=== PATIENT | female | born 2000 | race Two or more races ===

== ENCOUNTER 2022-06-09 00:28 | Emergency (ER) | payer BC, OTHER ==
[~2022-06-09] VITALS: Ht 167.6 cm; Wt 65.9 kg
[2022-06-09 01:31] LABS: Urine Bacteria FEW /hpf (None Seen); Urine Blood 1+ /uL (Negative); Urine Specific Gravity 1.002 (1.001-1.035); Urine WBC 89 /hpf (0 - 5)
[2022-06-09 01:56] LABS: Basophils # (auto) 0 10 ^3/uL (0-0.2); Basophils % (auto) 0.3 % (0.0-2.0); Eosinophils # (auto) 0.1 10 ^3/uL (0-0.8); Eosinophils % (auto) 1.5 % (0.0-7.0); Hematocrit 37.1 % (36.0-46.0); Hemoglobin 12.5 g/dL (12.2-16.2); Lymphocytes # (auto) 1.8 10 ^3/uL (0.4-5.4); Lymphocytes % (auto) 20.7 % (10.0-50.0); Mean Corpuscular Hgb Conc. 33.8 g/dL (32.0-36.0); Mean Corpuscular Volume 85.8 fL (80.0-100.0); Monocytes % (auto) 11.2 % (0.0-12.0); Neutrophils # (auto) 5.9 10 ^3/uL (1.6-8.6); Neutrophils % (auto) 66.3 % (37.0-80.0); Red Blood Cells 4.33 10^6/uL (4.0-5.20); Red Cell Distribution Width 13.9 % (11.8-14.3); White Blood Cell 8.8 10^3/uL (4.4-10.8)
[2022-06-09 02:15] LABS: Albumin 3.7 g/dL (3.4-5.0); BUN/Creatinine Ratio 15.7; Calcium 9.5 mg/dL (8.5-10.1); Potassium 3.9 mmol/L (3.5-5.1)
[2022-06-09 02:18] LABS: Bilirubin, Total 0.5 mg/dL (0.2-1.0); Total Protein 7.8 g/dL (6.4-8.2)
[2022-06-09] MEDS ORDERED: cefTRIAXone 1GM/50ML D5W 50 ML IV ONE (05:00)
[2022-06-09] MEDS ORDERED: TAMSULOSIN HYDROCHLORIDE 0.4 MG CAP PO ONE (05:45)
[2022-06-09] MEDS ORDERED: ONDANSETRON ODT 4 MG TAB PO ONE (05:45)
[2022-06-09] MEDS ORDERED: TAM04C PO (06:08)
[2022-06-09] MEDS ORDERED: HYDR-4902 PO (06:08)
[2022-06-09] MEDS ORDERED: CIPR500T4 PO (06:08)
[2022-06-09] MEDS ORDERED: ONDA-144 PO (06:08)
[2022-06-09] MEDS ORDERED: CIPROFLOXACIN HCL 500 MG TAB PO ONE (06:30)
[2022-06-09 06:35] VITALS: BP 116/69
== END 2022-06-09 06:41 | disposition home or self-care (01) ==
LOC: ER 00:28
DX: N39.0 Urinary tract infection, site not specified (principal); N12 Tubulo-interstitial nephritis, not specified as acute or chronic; R10.2 Pelvic and perineal pain
CPT/HCPCS: 36415; 74176; 80053; 81001; 84702; 85025; 99284; Q0162

== ENCOUNTER 2025-06-18 23:02 | Emergency (ER) | payer BC, MEDICAID, OTHER ==
[~2025-06-18] VITALS: Ht 167.6 cm; Wt 72.2 kg
[~2025-06-18 23:02] MED LIST: CIPR500T4 PO; HYDR-4902 PO; ONDA-144 PO; TAMS-35 PO
[2025-06-18 23:52] LABS: Hematocrit 39.1 % (36.0-46.0); Hemoglobin 13.1 g/dL (12.2-16.2); Mean Corpuscular Hemoglobin 28.9 pg (28.0-32.0); Mean Corpuscular Volume 86.4 fL (80.0-100.0); Nucleated Red Blood Cells % 0.1 %
[2025-06-19 00:04] LABS: Chloride 104 mmol/L (98-107); Potassium 3.9 mmol/L (3.5-5.1); Sodium 138 mmol/L (136-145)
[2025-06-19 00:05] LABS: Anion Gap 9 (5-15); Carbon Dioxide 25 mmol/L (20-31)
[2025-06-19 00:06] LABS: Calcium 9.6 mg/dL (8.7-10.4)
[2025-06-19 00:10] LABS: BUN/Creatinine Ratio 11.3 (10.0-20.0); Glucose 94 mg/dL (74-106)
[2025-06-19 00:18] LABS: Blood Urea Nitrogen 7 mg/dL (9-23)
--- NOTE | 2025-06-19 00:19 | ED.PDOC ---
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 Patient states she is currently 6 weeks , P:3. Patient began experiencing cramping this morning, around noon began experiencing light vaginal bleeding, about 2 hours ago noticed bleeding was slightly worsening. Denies any fever, chills, vaginal discharge, dysuria, nausea, vomiting, diarrhea, headache, dizziness. No other symptoms or modifying factors present at this time. Chief Complaint: Vaginal Bleed Time Seen by MD: 23:55 Reviewed Notes: Medications, Allergies Allergies: Coded Allergies: NO KNOWN ALLERGIES (Unverified , 03/20/12) Home Meds Active Scripts Hydrocodone-Acetaminophen (Hydrocodone Bitartrate/AC 5-325 mg) 1 Tab Tab, 1 TAB PO [id number] PRN for 5 Days, #10 TAB Prov:MALI LOONEY DO 06/09/22 Ondansetron (Zofran) 4 Mg Tab, 4 MG PO [id number] PRN for 3 Days, #10 MG Prov:MALI LOONEY DO 06/09/22 Tamsulosin Hcl (Flomax) 0.4 Mg Cap, 0.4 MG PO DAILY for 7 Days, #10 CAP Prov:MALI LOONEY DO 06/09/22 Ciprofloxacin Hcl (Ciprofloxacin Hcl) 500 Mg Tab, 500 MG PO Q12HR for 7 Days, #14 MG Prov:MALI LOONEY DO 06/09/22 Information Source: Patient Mode of Arrival: Ambulatory Timing: Hours Prehospital treatment: None Severity: Moderate Vaginal Discharge: None Vaginal Lesions: None Bleeding Quality: Bright Red Vaginal Mass: None Onset Of Mass/Bleeding: Spontaneous Sexual Activity: Last Consensual [place]: Unknown Control: None History of: Current Blood Type: Unknown Symptoms of Possible : Missed Period Associated Signs and Symptoms: Vaginal Bleeding, Cramping Past Medical History PAST MEDICAL HISTORY: Kidney Stones, UTI'S Surgical History: Denies all surgeries 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 Hx Family History Family History: Reviewed,noncontributory to illness, No family hx of DM, No family hx of HTN Social History Smoker: Non-Smoker Alcohol: Denies ETOH Use Drugs: Denies Drug Use Lives In: Home Constitutional: denies: chills, diaphoresis, fatigue, fever, malaise, sweats, weakness, others EENTM: denies: blurred vision, double vision, ear bleeding, ear discharge, ear drainage, ear pain, ear ringing, eye pain, eye redness, hearing loss, mouth pain, mouth swelling, nasal discharge, nose bleeding, nose congestion, nose pain, photophobia, tearing, throat pain, throat swelling, voice changes, others Respiratory: denies: cough, hemoptysis, orthopnea, SOB at rest, shortness of breath, SOB with excertion, stridor, wheezing, others Cardiovascular: denies: chest pain, dizzy spells, diaphoresis, Dyspnea on exertion, edema, irregular heart beat, left arm pain, lightheadedness, palpitations, PND, syncope, others Gastrointestinal: reports: abdominal pain; denies: abdomen distended, blood streaked bowels, constipated, diarrhea, dysphagia, difficulty swallowing, hematemesis, melena, nausea, poor appetite, poor fluid intake, rectal bleeding, rectal pain, vomiting, others Genitourinary: reports: abnormal vagina bleeding, ; denies: burning, dyspareunia, dysuria, flank pain, frequency, hematuria, incontinence, pain, vagina discharge, urgency, others Neurological: denies: dizziness, fainting, headache, left sided numbness, left sided weakness, numbness, paresthesia, pre-existing deficit, right sided numbness, right sided weakness, seizure, speech problems, tingling, tremors, weakness, others Musculoskeletal: denies: back pain, gout, joint pain, joint swelling, muscle pain, muscle stiffness, neck pain, others Integumetry: denies: bruises, change in color, change in hair/nails, dryness, laceration, lesions, lumps, rash, wounds, others Allergic/Immunocompromised: denies: Difficulty Healing, Frequent Infections, Hives, Itching, others Hematologic/Lymphatic: denies: anemia, blood clots, easy bleeding, easy bruising, swollen glands, others Endocrine: denies: excessive hunger, excessive sweating, excessive thirst, excessive urination, flushing, intolerance to cold, intolerance to heat, un explained weight gain, unexplained weight loss, others Psychiatric: denies: anxiety, bipolar disorder, depression, hopeless, panic disorder, schizophrenia, sleepless, suicidal, others All Other Systems: Reviewed and Negative Physical Exam General Appearance: No Apparent Distress, Normal HEENT: Normal ENT Inspection, Pharynx Normal, TMs Normal Neck: Full Range of Motion, Non-Tender, Normal, Normal Inspection Respiratory: Chest Non-Tender, Lungs Clear, No Accessory Muscle Use, No Respiratory Distress, Normal Breath Sounds Cardiovascular: No Edema, No JVD, No Murmur, No Gallop, Normal Peripheral Pu lses, Regular Rate/Rhythm Breast Exam: Deferred Gastrointestinal: No Organomegaly, Non Tender, No Pulsatile Mass, Normal Bowel Sounds, Soft Genitalia: Deferred Pelvic: Deferred Rectal: Deferred Extremities: No calf tenderness, Normal capillary refill, Normal inspection, Normal range of motion, Non-tender, No pedal edema Musculoskeletal : Apperance: Normal Neurologic: Alert, square dance caller II-XII nml as Tested, No Motor Deficits, Normal Affect, Normal Mood, No Sensory Deficits Cerebellar Function: Normal Reflexes: Normal Skin: Dry, Normal Color, Warm Lymphatic: No Adenopathy Was a procedure done? 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) Vaginal Bleeding: - Incomplete, - Threatened, Abruptio Placentae Mass / Lesion: N/A Vaginal Discharge: N/A X-Ray, Labs, Meds, VS Vital Signs Date Time Temp Pulse Resp B/P (MAP) Pulse Ox O2 Delivery O2 Flow Rate FiO2 06/18/25 23:06 98.9 66 20 102/65 96 98.9 Lab Test 06/18/25 23:33 Range/Units White Blood Count 6.3 4.4-10.8 10^3/uL Red Blood Count 4.52 4.0-5.20 10^6/uL Hemoglobin 13.1 12.2-16.2 g/dL Hematocrit 39.1 36.0-46.0 % Mean Corpuscular Volume 86.4 80.0-100.0 fL Mean Corpuscular Hemoglobin 28.9 28.0-32.0 pg Mean Corpuscular Hemoglobin Concent 33.4 32.0-36.0 g/dL Red Cell Distribution Width 13.1 11.8-14.3 % Platelet Count 246 140-450 10^3/uL Mean Platelet Volume 8.9 6.9-10.8 fL Neutrophils (%) (Auto) 52.0 37.0-80.0 % Lymphocytes (%) (Auto) 38.8 10.0-50.0 % Monocytes (%) (Auto) 6.9 0.0-12.0 % Eosinophils (%) (Auto) 2.0 0.0-7.0 % Basophils (%) (Auto) 0.3 0.0-2.0 % Neutrophils # (Auto) 3.3 1.6-8.6 10 ^3/uL Lymphocytes # (Auto) 2.4 0.4-5.4 10 ^3/uL Monocytes # (Auto) 0.4 0-1.3 10 ^3/uL Eosinophils # (Auto) 0.1 0-0.8 10 ^3/uL Basophils # (Auto) 0 0-0.2 10 ^3/uL Nucleated Red Blood Cells 0.1 % Sodium Level 138 136-145 mmol/L Potassium Level 3.9 3.5-5.1 mmol/L Chloride Level 104 98-107 mmol/L Carbon Dioxide Level 25 20-31 mmol/L Anion Gap 9 5-15 Blood Urea Nitrogen 7 L 9-23 mg/dL Creatinine 0.62 0.550-1.02 mg/dL Glomerular Filtration Rate Calc 126 >90 mL/min BUN/Creatinine Ratio 11.3 10.0-20.0 Serum Glucose 94 74-106 mg/dL Calcium Level 9.6 8.7-10.4 mg/dL Beta HCG, Quantitative 40597.1 H 1.5-4.2 mIU/mL [place] [address] Ph: [phone] DIAGNOSTIC IMAGING Diagnostic Imaging Report : [id number] Signed PATIENT: TENZIN OSPINA ACCT: [id number] UNIT: [id number] : 2000 LOC: ER ROOM / BED: / AGE / SEX: 25 / F ADM STATUS: REG ER SERVICE 0022 ORDERING PHYSICIAN: XIAO OGLESBY MD PROCEDURE(s): OB4US - OB ULTRASOUND COMP LESS 14WKS REASON: abdominal pain and vaginal bleeding ORDER NUMBER(s): [id number], ACCESSION NUMBER(s): [id number] OBSTETRIC ULTRASOUND PRIOR TO 14 WEEKS CLINICAL INDICATION: abdominal pain and vaginal bleeding TECHNIQUE: Multiple grayscale ultrasound images were obtained of the pelvis via transabdominal approach for obstetric evaluation. Limited color Doppler and spectral Doppler acquisitions were also obtained. COMPARISON: US OB LIMITED on DOS: 01/10/24, US OB BIOPHYSICAL PROFILE W/O N-STR on DOS: 01/10/24 FINDINGS: Uterus: 9.1 x 8.3 x 5.8 cm. There is a single intrauterine gestational sac is visualized. A pole is visualized measuring 0.31 cm compatible with an estimated gestational age of 5 weeks, 6 days. cardiac activity is present with heart rate of 122 beats per minute. A normal yolk sac is present. Right adnexa: right ovary 1.4 x 1.2 x 1.5 cm. Normal arterial blood flow in the ovary. No right adnexal mass seen. Left adnexa: left ovary 3.0 x 1.9 x 3.1 cm. Normal arterial blood flow in the ovary. No left adnexal mass seen. Hemorrhagic or corpus luteum in the left ovary measuring 1.7 cm. Other: There is a small subchorionic hemorrhage measuring up to 3.5 cm. IMPRESSION: 1. Single living intrauterine with an estimated gestational age of 5 weeks, 6 days, corresponding to an estimated date of delivery of 02/13/2026. 2. Small subchorionic hemorrhage. ATED BY: LATOYA ROBERTS MD DICTATED DATE/TIME: 06/19/25131 SIGNED BY: LATOYA ROBERTS MD SIGNED DATE/TIME: 06/19/25131 CC: Time of 1ST Reevaluation: 00:25 Reevaluation 1ST: Unchanged Patient Education/Counseling: Diagnosis, Treatment, Prognosis Family Education/Counseling: No Family Present Departure 1 Departure Time of Disposition: 02:52 (Patient likely with a threatened miscarriage we will discharge patient home with outpatient follow up) Impression: Primary Impression: Threatened miscarriage Disposition: 01 HOME / SELF CARE / HOMELESS Condition: Stable Additional Instructions: You have a threatened miscarriage. Your beta hcg level today was 20979. Your ultrasound showed a normal at 5 weeks and 6 days plus a small subchorionic hemorrhage. You should follow up with OBGYN within three days to recheck your blood work and ultrasound. If your symptoms worsen or you have any other concerns then please return to the ER. Discharged With: Self Critical Care Note Critical Care Time?: No Stability Stability form required: No I personally scribed for XIAO OGLESBY MD ([email or web address]) on 06/19/25 at 00:19. Electronically submitted by Myra Calderon ([email or web address]). I personally scribed for XIAO OGLESBY MD ([email or web address]) on 06/19/25 at 02:05. Electronically submitted by Myra Calderon ([email or web address]). XIAO OGLESBY MD Jun 19, 2025 00:19
--- NOTE | 2025-06-19 01:34 | DVH ---
OBSTETRIC ULTRASOUND PRIOR TO 14 WEEKS CLINICAL INDICATION: abdominal pain and vaginal bleeding TECHNIQUE: Multiple grayscale ultrasound images were obtained of the pelvis via transabdominal appro ach for obstetric evaluation. Limited color Doppler and spectral Doppler acquisitions were also obtai harry. COMPARISON: US OB LIMITED on DOS: 01/10/24, US OB BIOPHYSICAL PROFILE W/O N-STR on DOS: 01/10/24 FINDINGS: Uterus: 9.1 x 8.3 x 5.8 cm. There is a single intrauterine gestational sac is visualized. A sotero e is visualized measuring 0.31 cm compatible with an estimated gestational age of 5 weeks, 6 days. F etal cardiac activity is present with heart rate of 122 beats per minute. A normal yolk sac is prese nt. Right adnexa: right ovary 1.4 x 1.2 x 1.5 cm. Normal arterial blood flow in the ovary. No right adnex al mass seen. Left adnexa: left ovary 3.0 x 1.9 x 3.1 cm. Normal arterial blood flow in the ovary. No left adnexal mass seen. Hemorrhagic or corpus luteum in the left ovary measuring 1.7 cm. Other: There is a small subchorionic hemorrhage measuring up to 3.5 cm. IMPRESSION: 1. Single living intrauterine with an estimated gestational age of 5 weeks, 6 days, corre sponding to an estimated date of delivery of 02/13/2026. 2. Small subchorionic hemorrhage.
[2025-06-19 05:00] VITALS: BP 113/71; PULSE 69; RESP 15; TEMP 98.1; O2SAT 98
== END 2025-06-19 05:00 | disposition home or self-care (01) ==
LOC: ER 23:02
DX: O20.0 Threatened abortion (principal); Z87.442 Personal history of urinary calculi; Z87.440 Personal history of urinary (tract) infections; Z79.899 Other long term (current) drug therapy; Z3A.01 Less than 8 weeks gestation of pregnancy
CPT/HCPCS: 36415; 76801; 80048; 84702; 85025; 86900; 86901